=== PATIENT | male | born 1995 | race Caucasian/White ===

== ENCOUNTER 2022-12-04 13:21 | Emergency (ER) | payer SELFPAY ==
[2022-12-04] MEDS ORDERED: Ibuprofen 200 MG TAB ONE ×2 (14:18→14:19)
== END 2022-12-04 14:21 | disposition home or self-care (01) ==
LOC: BURERS 13:21
DX: N63.0 Unspecified lump in unspecified breast (principal)
CPT/HCPCS: 99283